=== PATIENT | male | born 1995 | race Caucasian/White ===

== ENCOUNTER 2017-05-20 13:38 | Emergency (ER) | payer OTHER ==
[2017-05-20 13:46] VITALS: BP 159/86; PULSE 99; TEMP 98; BMI 33.6
[2017-05-20] MEDS ORDERED: IBUPROFEN 400 MG TABLET (FP) PO ONE ×2 (15:27)
--- NOTE | 2017-05-20 15:30 | PDOC ---
History of Present Illness - General Chief Complaint: Back Pain Stated Complaint: BACK PAIN Time Seen by Provider: 05/20/17 14:52 History Source: Patient Exam Limitations: No Limitations - History of Present Illness Initial Comments: 05/20/17 15:32 Patient is a 22-year-old male with no past medical history presents emergency department today complaining of low back pain after lifting weights at the gym. Patient states that he felt that his form was bad when he was squatting approximately 100 pounds. He immediately wracked the bar. He states that he had back pain to the left side. He states that Better overnight with ice and ibuprofen. He states that he feels much better today. And that he needs a work note. Denies fevers, chills, numbness, tingling, bladder/bowel incontinence, weakness in his legs. Past History - Travel Traveled outside of the country in the last 30 days: No Close contact w/someone who was outside of country & ill: No - Past Medical History Allergies/Adverse Reactions: Allergies Allergy/AdvReac Type Severity Reaction Status Date / Time No Known Allergies Allergy Verified 05/20/17 13:46 Home Medications: Ambulatory Orders NK [No Known Home Medication] 05/20/17 COPD: No Other medical history: NONE - Immunization History Immunization Up to Date: Yes - Suicide/Smoking/Psychosocial Hx Smoking History: Never smoked Hx Alcohol Use: No Drug/Substance Use Hx: No Substance Use Type: None Review of Systems - Review of Systems Able to Perform ROS?: Yes Comments:: 05/20/17 15:34 CONSTITUTIONAL: Absent: fever, chills, diaphoresis, generalized weakness, malaise, loss of appetite HEENT: Absent: rhinorrhea, nasal congestion, throat pain, throat swelling, difficulty swallowing, mouth swelling, ear pain, eye pain, visual Changes CARDIOVASCULAR: Absent: chest pain, loss of consciousness, palpitations, irregular heart rate, peripheral edema RESPIRATORY: Absent: cough, shortness of breath, dyspnea with exertion, orthopnea, wheezing, stridor, hemoptysis GASTROINTESTINAL: Absent: abdominal pain, abdominal distension, nausea, vomiting, diarrhea, constipation, melena, hematochezia GENITOURINARY: Absent: dysuria, frequency, urgency, hesitancy, hematuria, flank pain, genital pain MUSCULOSKELETAL: Present: low back pain Absent: arthralgia, joint swelling SKIN: Absent: rash, itching, pallor HEMATOLOGIC/IMMUNOLOGIC: Absent: easy bleeding, easy bruising, lymphadenopathy, frequent infections ENDOCRINE: Absent: unexplained weight gain, unexplained weight loss, heat intolerance, cold intolerance NEUROLOGIC: Absent: headache, focal weakness or paresthesias, dizziness, unsteady gait, seizure, mental status changes, bladder or bowel incontinence PSYCHIATRIC: Absent: anxiety, depression, suicidal or homicidal ideation, hallucinations. Is the patient limited Portuguese proficient: No *Physical Exam - Vital Signs Last Vital Signs Temp Pulse Resp BP Pulse Ox 98.0 F 99 H 20 159/86 97 05/20/17 13:44 05/20/17 13:44 05/20/17 13:44 05/20/17 13:44 05/20/17 13:44 - Physical Exam Comments: 05/20/17 15:34 GENERAL: Well developed, well nourished. Awake and alert. No acute distress. HEENT: Normocephalic, atraumatic. PERRLA, EOMI. No conjunctival pallor. Sclera are non- icteric. Moist mucous membranes. Oropharynx is clear. NECK: Supple. Full ROM. No JVD. Carotid pulses 2+ and symmetric, without bruits. No thyromegaly. No lymphadenopathy. CARDIOVASCULAR: Regular rate and rhythm. No murmurs, rubs, or gallops. Distal pulses are 2+ and symmetric. PULMONARY: No evidence of respiratory distress. Lungs clear to auscultation bilaterally. No wheezing, rales or rhonchi. ABDOMINAL: Soft. Non-tender. Non-distended. No rebound or guarding. No organomegaly. Normoactive bowel sounds. MUSCULOSKELETAL TTP of L lower back at the level of S1. Normal range of motion at all joints. No bony deformities or tenderness. No CVA tenderness. EXTREMITIES: No cyanosis. No clubbing. No edema. No calf tenderness. SKIN: Warm and dry. Normal capillary refill. No rashes. No jaundice. NEUROLOGICAL: Alert, awake, appropriate. Cranial nerves 2-12 intact. No deficits to light touch and temperature in face, upper extremities and lower extremities. No motor deficits in the in face, upper extremities and lower extremities. Normoreflexic in the upper and lower extremities. Normal speech. Toes are down- going bilaterally. Gait is normal without ataxia. PSYCHIATRIC: Cooperative. Good eye contact. Appropriate mood and affect. Medical Decision Making - Medical Decision Making 05/20/17 15:35 Patient is a 22-year-old male no past medical history who presents to emergency department with one day of low back pain. Exam is benign. Neurologically intact , range of motion is intact. Slight spasm to left lower back. Patient feels well. We will discharge home at this time with ibuprofen and lift restrictions. *DC/Admit/Observation/Transfer Diagnosis at time of Disposition: Back pain Qualifiers: Back pain location: low back pain Chronicity: acute Back pain laterality: left Sciatica presence: without sciatica Qualified Code(s): M54.5 - Low back pain - Discharge Dispostion Disposition: HOME Condition at time of disposition: Good Admit: No - Referrals Referrals: Venita Samaniego MD [Primary Care Provider] - - Patient Instructions Printed Discharge Instructions: DI for Low Back Pain Additional Instructions: You have low back pain from lifting weights at the gym. Please use proper form when squatting in the future to avoid future injury. Please take ibuprofen 800 mg 3 times a day not to exceed 3000 mg. He may use ice or heat on your back which ever helps her symptoms more. Please do not lift more than 15 pounds for the next week. Follow up with her primary care doctor within one week. Return to the emergency department if you have worsening pain, fevers, chills, numbness and tingling down her legs, bowel or bladder incontinence, or any changes in your symptoms. - Post Discharge Activity Forms/Work/School Notes: Back to Work
== END 2017-05-20 15:32 | disposition home or self-care (01) ==
LOC: JERFT 13:38
DX: M54.5 Low back pain (principal)
CPT/HCPCS: 99281-25

== ENCOUNTER 2018-01-15 00:20 | Emergency (ER) | payer SELFPAY ==
--- NOTE | 2018-01-15 01:14 | PDOC ---
History of Present Illness - History of Present Illness Initial Comments: 01/15/18 01:41 Mr. Mcfadden is a 22 yo male w/ no pmh who presents for evaluation of target shaped rash to left abdomen. Patient reports he was bit by a tick on December 08 and believe he may have lyme disease. He also reports itching at the site and mild headache. The patient denies chest pain, shortness of breath, and dizziness. Denies fever , chills, nausea, vomit, diarrhea and constipation. Denies dysuria, frequency, urgency and hematuria. Allergies: NKDA <Kevan Loyd - Last Filed: 01/15/18 01:40> <Lindy Renae - Last Filed: 01/15/18 02:08> - General Stated Complaint: RASH/TICK BITE Time Seen by Provider: 01/15/18 01:14 Past History - Past Medical History COPD: No - Immunization History Immunization Up to Date: Yes - Suicide/Smoking/Psychosocial Hx Smoking History: Never smoked Hx Alcohol Use: No Drug/Substance Use Hx: No Substance Use Type: None <Kevan Loyd - Last Filed: 01/15/18 01:40> <Lindy Renae - Last Filed: 01/15/18 02:08> - Past Medical History Allergies/Adverse Reactions: Allergies Allergy/AdvReac Type Severity Reaction Status Date / Time No Known Allergies Allergy Verified 05/20/17 13:46 Home Medications: Ambulatory Orders Doxycycline Hyclate 100 mg PO BID #42 tablet 01/15/18 Review of Systems - Review of Systems Comments:: 01/15/18 01:42 GENERAL/CONSTITUTIONAL: No fever or chills. No weakness. HEAD, EYES, EARS, NOSE AND THROAT: No change in vision. No ear pain or discharge. No sore throat. CARDIOVASCULAR: No chest pain or shortness of breath RESPIRATORY: No cough, wheezing, or hemoptysis. GASTROINTESTINAL: No nausea, vomiting, diarrhea or constipation. GENITOURINARY: No dysuria, frequency, or change in urination. MUSCULOSKELETAL: No joint or muscle swelling or pain. No neck or back pain. SKIN: +Rash as described. NEUROLOGIC: +Mild headache for the last hour, No vertigo, loss of consciousness , or change in strength/sensation. ENDOCRINE: No increased thirst. No abnormal weight change HEMATOLOGIC/LYMPHATIC: No anemia, easy bleeding, or history of blood clots. ALLERGIC/IMMUNOLOGIC: No hives or skin allergy. <Kevan Loyd - Last Filed: 01/15/18 01:40> *Physical Exam - Physical Exam Comments: 01/15/18 01:42 GENERAL: Awake, alert, and fully oriented, in no acute distress HEAD: No signs of trauma, normocephalic, atraumatic EYES: PERRLA, EOMI, sclera anicteric, conjunctiva clear ENT: Auricles normal inspection, hearing grossly normal, nares patent, oropharynx clear without exudates. Moist mucosa NECK: Normal ROM, supple, no lymphadenopathy, JVD, or masses LUNGS: No distress, speaks full sentences, clear to auscultation bilaterally HEART: Regular rate and rhythm, normal S1 and S2, no murmurs, rubs or gallops, peripheral pulses normal and equal bilaterally. ABDOMEN: Soft, nontender, normoactive bowel sounds. No guarding, no rebound. No masses EXTREMITIES: Normal inspection, Normal range of motion, no edema. No clubbing or cyanosis. NEUROLOGICAL: Cranial nerves II through XII grossly intact. Normal speech, normal gait, no focal sensorimotor deficits SKIN: +15-20 cm classic target shaped red rash to left lower abdomen. <Kevan Loyd - Last Filed: 01/15/18 01:40> - Vital Signs Last Vital Signs Temp Pulse Resp BP Pulse Ox 98.8 F 68 17 126/76 99 01/15/18 01:48 01/15/18 01:48 01/15/18 01:48 01/15/18 01:48 01/15/18 01:48 <Lindy Renae - Last Filed: 01/15/18 02:08> ED Treatment Course - LABORATORY CBC & Chemistry Diagram: 01/15/18 01:35 01/15/18 01:35 - ADDITIONAL ORDERS Additional order review: 01/15/18 01:35 RBC 4.89 MCV 89.4 MCHC 32.9 RDW 13.6 MPV 8.2 Neutrophils % 54.8 Lymphocytes % 33.6 Monocytes % 8.7 Eosinophils % 1.9 Basophils % 1.0 - Medications Given in the ED: ED Medications Discontinued Medications Generic Name Dose Route Start Last Admin Trade Name Freq PRN Reason Stop Dose Admin Doxycycline Hyclate 100 mg 01/15/18 01:29 01/15/18 01:45 Vibramycin - PO 01/15/18 01:30 100 mg ONCE ONE Administration <Lindy Renae - Last Filed: 01/15/18 02:08> Medical Decision Making - Medical Decision Making 01/15/18 01:47 Mr. Mcfadden is a 22 yo male w/ pmh as described who presents for evaluation of target shaped rash c/w classic lyme presentation. Lyme titers and basic labs drawn, doxycycline started for treatment. Rx sent to patient's pharmacy. Discharging to home w/ instructions to f/u outpatient for further evaluation. <Kevan Loyd - Last Filed: 01/15/18 01:40> *DC/Admit/Observation/Transfer <Kevan Loyd - Last Filed: 01/15/18 01:40> <Lindy Renae - Last Filed: 01/15/18 02:08> Diagnosis at time of Disposition: Lyme disease - Discharge Dispostion Disposition: HOME - Prescriptions Prescriptions: Doxycycline Hyclate 100 mg PO BID #42 tablet - Patient Instructions Printed Discharge Instructions: DI for Lyme Disease Additional Instructions: You were diagnosed today with lyme disease. Please take all medications as proscribed for treatment. Follow-up with primary care provider for further evaluation later this week.
[2018-01-15] MEDS ORDERED: DOXYCYCLINE HYCLATE 100 MG CAPSULE PO ONE ×2 (01:29→01:38)
[2018-01-15 01:54] VITALS: BP 126/76; PULSE 68; TEMP 98.8; BMI 27.4
[2018-01-15 01:58] LABS: EOS % 1.9 % (0-4.5); HEMATOCRIT 43.7 % (35.4-49); HEMOGLOBIN 14.4 GM/dL (11.7-16.9); LYMPH % 33.6 % (8-40); MCH 29.4 pg (25.7-33.7); MCHC 32.9 g/dl (32.0-35.9); MEAN CELL VOLUME 89.4 fl (80-96); MEAN PLT VOLUME 8.2 fl (7.5-11.1); MONO % 8.7 % (3.8-10.2); NEUT % 54.8 % (42.8-82.8); PLATELET COUNT 353 K/MM3 (134-434); RBC 4.89 M/mm3 (4.00-5.60); RDW 13.6 % (11.9-15.9); WHITE BLOOD COUNT 11.1 K/mm3 (4.0-10.0)
--- NOTE | 2018-01-15 02:09 | PDOC ---
Attending Attestation - HPI HPI: 01/15/18 02:10 The patient is a 22-year-old male, with no significant past medical history, who presents to the ED with a itchy rash to his left lower quadrant. The patient reports that he was bit by a tick on 12/08/17 but developed the rash 3 hours ago. He reports an associated headache. The patient denies any fever, chills, nausea, vomiting, diarrhea, constipation, or abdominal pain. Denies chest pain or shortness of breath. Allergies: NKA - Physicial Exam PE: 01/15/18 02:10 GENERAL: Well-appearing, well-nourished. No apparent distress. HEENT: Normocephalic, atraumatic. PERRL, EOM intact. CARDIOVASCULAR: Normal S1, S2. Regular rate and rhythm. PULMONARY: Clear to auscultation bilaterally. ABDOMEN: (+)Target lesion in the left lower quadrant. Soft, non-distended, non-tender. EXTREMITIES: Normal ROM in all four extremities. No gross deformities. SKIN: Warm, dry. NEUROLOGICAL: No focal neurological deficits. <Lindy Renae - Last Filed: 01/15/18 02:10> - Resident Resident Name: Kevan Loyd - ED Attending Attestation I have performed the following: I have examined & evaluated the patient, The case was reviewed & discussed with the resident, I agree w/resident's findings & plan, Exceptions are as noted - Medical Decision Making 01/18/18 19:13 Pt treated and released <Christiano Joe - Last Filed: 01/18/18 19:13> Attestations - Attestations 01/15/18 02:12 Documentation prepared by Lindy Renae, acting as medical equipment repair technician for Christiano Joe DO. <Lindy Renae - Last Filed: 01/15/18 02:10>
[2018-01-15 02:27] LABS: ALBUMIN 4.3 g/dl (3.4-5.0); ANION GAP 7 (8-16); BILIRUBIN,TOTAL 0.9 mg/dL (0.2-1.0); BLOOD UREA NITROGEN 20 mg/dL (7-18); CALCIUM 9.7 mg/dL (8.5-10.1); CHLORIDE 101 mmol/L (98-107); CO2 33 mmol/L (21-32); CREATININE 0.9 mg/dL (0.7-1.3); GLUCOSE,RANDOM 95 mg/dL (74-106); POTASSIUM 4.7 mmol/L (3.5-5.1); SGOT/AST 37 U/L (15-37); SGPT/ALT 40 U/L (12-78); SODIUM 141 mmol/L (136-145); TOT PROT 7.4 g/dl (6.4-8.2)
[2018-01-15 02:28] LABS: ALK PHOS 57 U/L (45-117)
== END 2018-01-15 02:13 | disposition home or self-care (01) ==
LOC: JER 00:20
DX: A69.20 Lyme disease, unspecified (principal)
CPT/HCPCS: 36415; 80053; 85025; 99281-25

== ENCOUNTER 2018-05-10 19:59 | Emergency (ER) | payer SELFPAY ==
[2018-05-10 20:06] VITALS: BP 150/94; PULSE 92; TEMP 98.1; BMI 33.7
--- NOTE | 2018-05-10 20:08 | PDOC ---
Rapid Medical Evaluation Chief Complaint: Lightheaded Time Seen by Provider: 05/10/18 20:01 Medical Evaluation: Allergies Allergy/AdvReac Type Severity Reaction Status Date / Time No Known Allergies Allergy Verified 05/20/17 13:46 05/10/18 20:02 I have performed a brief in-person evaluation of this patient. The patient presents with a chief complaint of: headache, dizziness - states became lightheaed and weak, collapsed outside and thinks had ~ few minutes of LOC. States has had multiple episodes in past, but this time the worst. Still has some "head pressure and fuzziness". Denies recent exercise changes/ no hx of URI/Cardiac disease/ diabetes. Denies drug or excessive alcohol use. Pertinent physical exam findings: AxOx 3 but is pale/ with some mild diaphoresis. Amb with no unsteadiness. I have ordered the following: EKG, CbC, Cmp, The patient will proceed to the ED for further evaluation 05/10/18 20:08 05/10/18 20:12 Discharge Disposition - Diagnosis Dizziness - Referrals - Patient Instructions - Post Discharge Activity
[2018-05-10 20:27] LABS: BASO % 1.2 % (0-2.0); EOS % 1.5 % (0-4.5); HEMATOCRIT 42.6 % (35.4-49); HEMOGLOBIN 14.9 GM/dL (11.7-16.9); LYMPH % 29.7 % (8-40); MCH 30.7 pg (25.7-33.7); MEAN CELL VOLUME 87.8 fl (80-96); MEAN PLT VOLUME 8.2 fl (7.5-11.1); MONO % 8.5 % (3.8-10.2); NEUT % 59.1 % (42.8-82.8); PLATELET COUNT 358 K/MM3 (134-434); RBC 4.85 M/mm3 (4.00-5.60); RDW 13.3 % (11.9-15.9); WHITE BLOOD COUNT 9.4 K/mm3 (4.0-10.0)
[2018-05-10 20:52] LABS: ALBUMIN 4.2 g/dl (3.4-5.0); ALK PHOS 56 U/L (45-117); ANION GAP 8 MMOL/L (8-16); BILIRUBIN,TOTAL 1.5 mg/dL (0.2-1); BLOOD UREA NITROGEN 18 mg/dL (7-18); CALCIUM 8.9 mg/dL (8.5-10.1); CHLORIDE 105 mmol/L (98-107); CO2 26 mmol/L (21-32); CREATININE 0.9 mg/dL (0.55-1.3); GLUCOSE,RANDOM 117 mg/dL (74-106); POTASSIUM 4.1 mmol/L (3.5-5.1); SGOT/AST 57 U/L (15-37); SGPT/ALT 53 U/L (13-61); SODIUM 139 mmol/L (136-145); TOT PROT 7.2 g/dl (6.4-8.2)
[2018-05-10] MEDS ORDERED: MECLIZINE HCL 25 MG TABLET (FP) PO ONE (21:21)
--- NOTE | 2018-05-10 21:33 | PDOC ---
History of Present Illness <Jean PierreAlexandra Karen - Last Filed: 05/10/18 23:42> - General History Source: Patient - History of Present Illness Initial Comments: 05/10/18 21:27 23m with no pmh presents to the ED with episode of syncope yesterday preceded by ringing in the ears, distorted vision, sensation of room spinning before feeling like needing to lay down in the grass, after which he woke up face down. He woke up 15min latyer with a little cut in the inside of his upper lip. Admits to have had around 10 or so similar episodes in the past but never told anyone or seen a doctor for those. Denies taking any medication or drugs. Was just walking in the street when that happened. Now complaining of pressure inside his head and feeling dizzy. 05/10/18 21:34 <Clark Clark - Last Filed: 05/10/18 23:59> - General Chief Complaint: Lightheaded Stated Complaint: Syncope/Near Syncope Time Seen by Provider: 05/10/18 20:01 Past History <Alexandra Greenfield - Last Filed: 05/10/18 23:42> - Past Medical History COPD: No - Immunization History Immunization Up to Date: Yes - Suicide/Smoking/Psychosocial Hx Smoking History: Never smoked Have you smoked in the past 12 months: No Hx Alcohol Use: No Drug/Substance Use Hx: No Substance Use Type: None <ClarkCiriloy - Last Filed: 05/10/18 23:59> - Past Medical History Allergies/Adverse Reactions: Allergies Allergy/AdvReac Type Severity Reaction Status Date / Time No Known Allergies Allergy Verified 05/10/18 20:06 Home Medications: Ambulatory Orders Amoxicillin - [Amoxicillin 500mg Capsule -] 500 mg PO TID #63 capsule 01/15/18 Doxycycline Hyclate 100 mg PO BID #42 tablet 01/15/18 Meclizine HCl [Antivert -] 25 mg PO TID #21 tablet 05/10/18 Review of Systems - Review of Systems Able to Perform ROS?: Yes Is the patient limited Croatian proficient: No Constitutional: Yes: Malaise HEENTM: No: Symptoms Reported Respiratory: No: Symptoms reported Cardiac (ROS): No: Symptoms Reported ABD/GI: No: Symptoms Reported : No: Symptoms Reported Musculoskeletal: No: Symptoms Reported Integumentary: No: Symptoms Reported Neurological: Yes: Headache, Dizziness All Other Systems: Reviewed and Negative <Clark Clark - Last Filed: 05/10/18 23:59> *Physical Exam - Vital Signs Last Vital Signs Temp Pulse Resp BP Pulse Ox 98.1 F 92 H 18 150/94 99 05/10/18 20:01 05/10/18 20:01 05/10/18 20:01 05/10/18 20:01 05/10/18 20:01 <Alexandra Greenfieldh - Last Filed: 05/10/18 23:42> - Vital Signs Last Vital Signs Temp Pulse Resp BP Pulse Ox 98.1 F 92 H 18 150/94 99 05/10/18 20:01 05/10/18 20:01 05/10/18 20:01 05/10/18 20:01 05/10/18 20:01 - Physical Exam General Appearance: Yes: Nourished, Appropriately Dressed, Obese. No: Apparent Distress HEENT: positive: EOMI, SG, Normal ENT Inspection Respiratory/Chest: positive: Lungs Clear, Normal Breath Sounds. negative: Chest Tender, Respiratory Distress Cardiovascular: positive: Regular Rhythm, Regular Rate, S1, S2 Gastrointestinal/Abdominal: positive: Normal Bowel Sounds, Flat, Soft. negative : Tender Musculoskeletal: positive: Normal Inspection Extremity: positive: Normal Capillary Refill, Normal Inspection Integumentary: positive: Normal Color, Dry, Warm Neurologic: positive: Fully Oriented, Alert, Normal Mood/Affect, Normal Response , Motor Strength 5/5, Other (nystagmus present) <Clark Clark - Last Filed: 05/10/18 23:59> ED Treatment Course - LABORATORY CBC & Chemistry Diagram: 05/10/18 20:21 05/10/18 20:21 - ADDITIONAL ORDERS Additional order review: Laboratory Results 05/10/18 20:21 Sodium 139 Potassium 4.1 Chloride 105 Carbon Dioxide 26 Anion Gap 8 BUN 18 Creatinine 0.9 Creat Clearance w eGFR > 60 Random Glucose 117 H Calcium 8.9 Total Bilirubin 1.5 H AST 57 H ALT 53 Alkaline Phosphatase 56 Total Protein 7.2 Albumin 4.2 05/10/18 20:21 RBC 4.85 MCV 87.8 MCHC 35.0 RDW 13.3 MPV 8.2 Neutrophils % 59.1 Lymphocytes % 29.7 Monocytes % 8.5 Eosinophils % 1.5 Basophils % 1.2 - Medications Given in the ED: ED Medications Discontinued Medications Generic Name Dose Route Start Last Admin Trade Name Triston PRN Reason Stop Dose Admin Meclizine HCl 25 mg 05/10/18 21:21 05/10/18 22:22 Antivert - PO 05/10/18 21:22 25 mg ONCE ONE Administration <Alexandra Greenfield - Last Filed: 05/10/18 23:42> - LABORATORY CBC & Chemistry Diagram: 05/10/18 20:21 05/10/18 20:21 - ADDITIONAL ORDERS Additional order review: Laboratory Results 05/10/18 20:21 Sodium 139 Potassium 4.1 Chloride 105 Carbon Dioxide 26 Anion Gap 8 BUN 18 Creatinine 0.9 Creat Clearance w eGFR > 60 Random Glucose 117 H Calcium 8.9 Total Bilirubin 1.5 H AST 57 H ALT 53 Alkaline Phosphatase 56 Total Protein 7.2 Albumin 4.2 05/10/18 20:21 RBC 4.85 MCV 87.8 MCHC 35.0 RDW 13.3 MPV 8.2 Neutrophils % 59.1 Lymphocytes % 29.7 Monocytes % 8.5 Eosinophils % 1.5 Basophils % 1.2 - RADIOLOGY Radiology Studies Ordered: Category Date Time Status HEAD CT WITHOUT CONTRAST [CT] Stat CT Scan 05/10/18 21:22 Ordered <Clark Clark - Last Filed: 05/10/18 23:59> Medical Decision Making - Medical Decision Making 05/10/18 21:52 vasovagal vs seizure disorder Patient doesnt look dehydrated. Will give meclizine , ct head and reassess. 05/10/18 23:57 CT head negative, patient feels better. Will discharge with ent and neuro referral. <Clark Clark - Last Filed: 05/10/18 23:59> *DC/Admit/Observation/Transfer <Alexandra Greenfield - Last Filed: 05/10/18 23:42> - Discharge Dispostion Decision to Admit order: No <Clark Clark - Last Filed: 05/10/18 23:59> Diagnosis at time of Disposition: Dizziness - Discharge Dispostion Disposition: HOME Condition at time of disposition: Improved - Prescriptions Prescriptions: Meclizine HCl [Antivert -] 25 mg PO TID #21 tablet - Referrals Referrals: Korey Garcia DO [Staff Physician] - Jonathan Gonzales MD [Staff Physician] - - Patient Instructions Printed Discharge Instructions: DI for Vertigo Additional Instructions: Come back to the ED for any new, worsening or concerning symptom. Follow up with Neurology and ENT.
--- NOTE | 2018-05-10 23:04 | PDOC ---
History of Present Illness - General Chief Complaint: Lightheaded Stated Complaint: Syncope/Near Syncope Time Seen by Provider: 05/10/18 20:01 Past History - Past Medical History Allergies/Adverse Reactions: Allergies Allergy/AdvReac Type Severity Reaction Status Date / Time No Known Allergies Allergy Verified 05/10/18 20:06 Home Medications: Ambulatory Orders Amoxicillin - [Amoxicillin 500mg Capsule -] 500 mg PO TID #63 capsule 01/15/18 Doxycycline Hyclate 100 mg PO BID #42 tablet 01/15/18 COPD: No - Immunization History Immunization Up to Date: Yes - Suicide/Smoking/Psychosocial Hx Smoking History: Never smoked Have you smoked in the past 12 months: No Hx Alcohol Use: No Drug/Substance Use Hx: No Substance Use Type: None Review of Systems - Review of Systems Is the patient limited Arabic proficient: No *Physical Exam - Vital Signs Last Vital Signs Temp Pulse Resp BP Pulse Ox 98.1 F 92 H 18 150/94 99 05/10/18 20:01 05/10/18 20:01 05/10/18 20:01 05/10/18 20:01 05/10/18 20:01 *DC/Admit/Observation/Transfer Diagnosis at time of Disposition: Dizziness - Referrals - Patient Instructions - Post Discharge Activity
--- NOTE | 2018-05-10 23:07 | PDOC ---
Attending Attestation - HPI HPI: 05/10/18 23:30 The patient is a 23 year old male, with no significant past medical history, who presents to the emergency department with, ear ringing and room spinning. As per patient, he experienced an episode of syncope yesterday just prior to the onset of his symptoms. He notes cutting the inside of hit mouth. Patient also endorses a pressure-like headache. Allergies: NKDA - Physicial Exam PE: 05/10/18 23:31 GENERAL: Well-appearing, well-nourished. No apparent distress. HEENT: Normocephalic, atraumatic. PERRL, EOM intact. CARDIOVASCULAR: Normal S1, S2. Regular rate and rhythm. PULMONARY: Clear to auscultation bilaterally. ABDOMEN: Soft, non-distended, non-tender. EXTREMITIES: Normal ROM in all four extremities. No gross deformities. SKIN: Warm, dry. No rash NEUROLOGICAL: No focal neurological deficits. <Georgia Whitfield - Last Filed: 05/10/18 23:30> - Resident Resident Name: Clark Clark - ED Attending Attestation I have performed the following: I have examined & evaluated the patient, The case was reviewed & discussed with the resident, I agree w/resident's findings & plan, Exceptions are as noted - HPI HPI: 05/10/18 23:05 23-year-old male reports a syncopal episode today. He has complaint of dizziness while he was walking, he moved over to the grass to kneel down and woke up later with some facial trauma. He states this has occurred before -he denies chest pain,sob,confusion.extremity weakness - Medical Decision Making 05/11/18 00:15 CAT scan of the head was negative for any acute intracranial pathology. No bleed, no mass, no midline shift, no infarct Labs were reviewed and essentially unremarkable EKG was normal sinus rhythm with no signs of ischemia. Symptoms improved with meclizine. Patient referred to ENT and neuro impression vertigo. Rx for meclizine sent to pharmacy <Alexandra Greenfield - Last Filed: 05/11/18 00:16> Attestations - Attestations 05/10/18 23:32 Documentation prepared by Georgia Whitfield, acting as clinical medical transcriptionist for Alexandra Greenfield MD. <Georgia Whitfield - Last Filed: 05/10/18 23:30>
--- NOTE | 2018-05-11 12:07 | EKG ---
Test Reason : Blood Pressure : / mmHG Vent. Rate : 080 BPM Atrial Rate : 080 BPM P-R Int : 140 ms QRS Dur : 088 ms QT Int : 332 ms P-R-T Axes : 054 065 038 degrees QTc Int : 382 ms NORMAL SINUS RHYTHM WITH SINUS ARRHYTHMIA NORMAL ECG NO PREVIOUS ECGS AVAILABLE Confirmed by MD AYANA, CHIQUIS ([id number]) on 05/11/2018 12:07:31 PM Referred By: Confirmed By:CHIQUIS PIÑA MD
== END 2018-05-11 02:00 | disposition home or self-care (01) ==
LOC: JER 19:59
DX: R42 Dizziness and giddiness (principal)
CPT/HCPCS: 36415; 70450-TC; 80053; 85025; 93005; 93010; 99285-25

== ENCOUNTER 2022-04-08 12:16 | Emergency (ER) | payer OTHER ==
[2022-04-08 12:49] VITALS: BP 123/86; PULSE 72; RESP 20; TEMP 98.4; BMI 33.9
[2022-04-08] MEDS ORDERED: KETOROLAC TROMETHAMINE 30 MG/1 ML VIAL IM ONE (13:06)
== END 2022-04-08 14:15 | disposition home or self-care (01) ==
LOC: JERFT 12:16
DX: M25.521 Pain in right elbow (principal); M79.89 Other specified soft tissue disorders
CPT/HCPCS: 73070-TC-RT-FY; 73110-TC-LT-FY; 73110-TC-RT-FY; 99284-25

== ENCOUNTER 2022-07-03 17:45 | Emergency (ER) | payer OTHER ==
[2022-07-03 18:31] VITALS: BP 120/75; PULSE 97; RESP 19; TEMP 98.9; BMI 35.2
== END 2022-07-03 22:24 | disposition home or self-care (01) ==
LOC: JER 17:45
DX: U07.1 COVID-19 (principal)
CPT/HCPCS: 0241U-QW; 99283-25

== ENCOUNTER 2022-08-07 13:51 | Emergency (ER) | payer OTHER ==
[2022-08-07 14:07] VITALS: BP 129/75; PULSE 89; RESP 20; TEMP 98.1; BMI 35.2
== END 2022-08-07 16:07 | disposition home or self-care (01) ==
LOC: JER 13:51 → JERFT 13:51
DX: M25.521 Pain in right elbow (principal)
CPT/HCPCS: 73070-TC-RT-FY; 99283-25

== ENCOUNTER 2023-01-04 13:26 | Emergency (ER) | payer OTHER ==
[2023-01-04 13:29] VITALS: BP 123/81; PULSE 84; RESP 18; TEMP 9737; BMI 35.9
[2023-01-04] MEDS ORDERED: CYCLOBENZAPRINE HCL 10 MG TABLET (FP) PO ONE (14:35)
[2023-01-04] MEDS ORDERED: ACETAMINOPHEN 500 MG TABLET (FP) PO ONE (14:35)
[2023-01-04] MEDS ORDERED: LIDOCAINE 5% TOPICAL PATCH TP ONE (14:35)
[2023-01-04] MEDS ORDERED: KETOROLAC TROMETHAMINE 30 MG/1 ML VIAL IM ONE (14:35)
[2023-01-04] MEDS ORDERED: LIDOCAINE 5% TOPICAL PATCH ONE (14:37)
[2023-01-04] MEDS ORDERED: CYCLOBENZAPRINE HCL 10 MG TABLET (FP) ONE (14:37)
[2023-01-04] MEDS ORDERED: KETOROLAC TROMETHAMINE 30 MG/1 ML VIAL ONE (14:37)
[2023-01-04] MEDS ORDERED: ACETAMINOPHEN 500 MG TABLET (FP) ONE (14:37)
[2023-01-04] MEDS ORDERED: LIDOCAINE PATCH REMOVAL MC ONE (22:00)
== END 2023-01-04 15:09 | disposition home or self-care (01) ==
LOC: JERFT 13:26
PROC: 3E0233Z Introduction of Anti-inflammatory into Muscle, Percutaneous Approach (ICD-10-PCS; principal; 2023-01-04)
DX: S39.012A Strain of muscle, fascia and tendon of lower back, initial encounter (principal); X50.0XXA Overexertion from strenuous movement or load, initial encounter; Y99.0 Civilian activity done for income or pay
CPT/HCPCS: 99284-25